=== PATIENT | female | born 1970 | race Caucasian/White ===

== ENCOUNTER 2018-05-08 13:58 | Outpatient (CLI) | payer OTHER | END 2018-05-08 13:59 | disposition home or self-care (01) | LOC: BICMAMMO 13:58 | PROVIDERS: ATTEND Family Medicine | DX: Z12.31 Encounter for screening mammogram for malignant neoplasm of breast (principal); Z80.3 Family history of malignant neoplasm of breast | CPT/HCPCS: 77063; 77067 ==

== ENCOUNTER 2018-07-24 10:30 | Observation (INO) | payer OTHER ==
[2018-07-24 11:23] LABS: #Basophils 0.2 thou/uL (0.0-0.2); #Eosinphils 0.3 thou/uL (0.0-0.7); #Lymphocytes 1.9 thou/uL (1.20-3.40); #Monocytes 0.8 thou/uL (0.11-0.59); #Neutrophils 7.3 thou/uL (1.40-6.50); %Basophils 1.7 % (0.0-1.0); %Eosinophils 2.5 % (0.0-10.0); %Lymphocytes 17.9 % (21.0-51.0); %Monocytes 7.2 % (0.0-10.0); %Neutrophils 70.7 % (42.0-75.0); Hemoglobin 16.9 g/dL (12.0-16.0); Mean Corpuscular Hemoglobin 31.3 pg (27.0-31.0); Mean Corpuscular Volume 92.1 fL (78.0-98.0); Mean Platelet Volume 10.5 fL (7.4-10.4); Platelet Count 205 thou/uL (130-400); RBC Distribution Width 10.7 % (11.5-14.5); White Blood Cell (WBC) Count 10.3 thou/uL (4.8-10.8)
[2018-07-24 11:29] LABS: ALT (SGPT) 22 U/L (8-55); AST (SGOT) 23 U/L (5-34); Albumin 4.8 g/dL (3.5-5.0); Alkaline Phosphatase 76 U/L (40-150); Anion Gap 16 mmol/L (10-20); BUN (Urea Nitrogen) 9 mg/dL (7.0-18.7); Bilirubin, Total 0.5 mg/dL (0.2-1.2); Calc. Creatinine Clearance 0 mL/min (70-130); Calcium 10.1 mg/dL (7.8-10.44); Carbon Dioxide 25 mmol/L (22-29); Chloride 99 mmol/L (98-107); Estimated GFR-MDRD 79; Globulin 3.2 g/dL (2.4-3.5); Glucose 100 mg/dL (70-105); Potassium 3.8 mmol/L (3.5-5.1); Sodium 136 mmol/L (136-145)
--- NOTE | 2018-07-24 11:38 | CT ---
CT BRAIN NONCONTRAST: HISTORY: A 48-year-old female with left lower extremity paresthesia and left lower extremity weakness. FINDINGS: There is no midline shift or any other mass effect. There is no evidence of acute intracranial hemor rhage, large cortical infarct, obstructive hydrocephalus, or extraaxial fluid collection. The calvar ium is intact. IMPRESSION: No acute intracranial findings. jn [] POS: [facility]
[2018-07-24 17:28] VITALS: BMI 22.6
--- NOTE | 2018-07-24 18:51 | PDOC.FPRHP ---
- History of Present Illness Chief Complaint: left leg paresthesias and weakness History of Present Illness: The patient is a 48YOF with a PMH significant for HTN who presented to the ED with a CC of left leg numbness and weakness that has gotten progressively worse over the last 2-3 days. The patient stated that she first noticed some decreased sensation or numbness in her left lateral thigh. Over the next day or so she then began having difficulty dorsiflexing her left foot and felt like her left leg was heavy. She says she has still be able to walk but states that it "feels awkward." The patient denies any associated headache, blurry vision, recent viral illnesses or previous h/o CVA/TIA. The patient also endorses some posterior neck pain that she states has been ongoing for the last several weeks. She describes the pain as a burning/tingling /aching sensation locate all along the back and sides of her neck with occasional radiation into her upper back. She says the pain is fairly constant that it is exacerbated by standing. Has tried icing it but said that did not help. Has not tried any OTC medications for it. Denies any associated upper extremity weakness but has occasional left upper extremity numbness/tingling. ED Course: 243mg ASA - Allergies/Adverse Reactions Allergies Allergy/AdvReac Type Severity Reaction Status Date / Time No Known Allergies Allergy Unverified 07/24/18 17:34 - Home Medications Medication Instructions Recorded Confirmed Type Levothyroxine Sodium 125 mcg PO DAILY 07/24/18 07/24/18 History Lisinopril 1 tab PO DAILY 07/24/18 07/24/18 History - History PMHx: HTN, hypothyroid, and tobacco abuse PSHx: appendectomy at age 16 FHx: Father- CAD s/p CABG & from ALS, diagnosed at age 56-57 and at age 60 Mother- HLD Brother- HTN Social: 32 pack year smoking history, drinks 1 bottle of wine every night, no drug use. Lives at home with and [id number]. Doesn't work. - Review of Systems General: reports: weight/appetite/sleep changes. denies: fever/chills Eyes: denies: eye pain, vision changes ENT: denies: nasal congestion Respiratory: reports: cough. denies: shortness of breath Cardiovascular: reports: palpitation. denies: chest pain Gastrointestinal: reports: diarrhea (loose stools). denies: nausea, vomiting Genitourinary: reports: incontinence (stress incontinence). denies: dysuria Skin: denies: rashes, itching Musculoskeletal: reports: pain. denies: arthritis/arthralgias Neurological: reports: numbness, weakness. denies: syncope, seizure Psychological: reports: other (stress at home 2/2 [id number] living with them ) - Vital signs BP: 124/74 HR: 85 RR: 16 Tmax: 98.1F Pox: 96% on RA Wt: 61.859kg - Physical Exam Constitutional: NAD, awake, alert and oriented, well developed HEENT: normocephalic and atraumatic, PERRLA, EOMI, conjunctiva clear, no scleral icterus, grossly normal vision, grossly normal hearing, MMM, oropharynx clear Neck: FROM, trachea midline, no bruits Heart: RRR, normal S1/S2, pulses present, no edema Lungs: CTAB, no respiratory distress, good air movement, no rales/rhonchi, no wheezing Abdomen: soft, non-tender, bowel sounds present Musculoskeletal: normal structure, other (decreased dorsiflexion in left foot) Neurological: other (All director of recruitment intact with exception of V2 on the left where the patient reported decreased sensation compared to the right impaired dorsiflexion w/ 3/5 in left foot w/ 5/5 strength in left leg B/L UEs decreased sensation to light touch in left thigh compared to right 2+ reflexes in RLE compared to 3+ on the left with no clonus noted intact proprioception bilateral with no cerebellar signs and negative Romberg sign Left-sided drop foot gait noted on exam) Skin: no rash/lesions, good turgor, no jaundice Heme/Lymphatic: no unusual bruising or bleeding, no purpura Psychiatric: normal mood and affect, good judgment and insight, intact recent and remote memory FMR H&P: Results - Labs Result Diagrams: 07/24/18 11:05 07/24/18 11:05 Lab results: WBC 10.3 thou/uL (4.8-10.8) 07/24/18 11:05 Hgb 16.9 g/dL (12.0-16.0) H 07/24/18 11:05 Hct 49.7 % (36.0-47.0) H 07/24/18 11:05 MCV 92.1 fL (78.0-98.0) 07/24/18 11:05 Plt Count 205 thou/uL (130-400) 07/24/18 11:05 Neutrophils % 70.7 % (42.0-75.0) 07/24/18 11:05 Sodium 136 mmol/L (136-145) 07/24/18 11:05 Potassium 3.8 mmol/L (3.5-5.1) 07/24/18 11:05 Chloride 99 mmol/L (98-107) 07/24/18 11:05 Carbon Dioxide 25 mmol/L (22-29) 07/24/18 11:05 BUN 9 mg/dL (7.0-18.7) 07/24/18 11:05 Creatinine 0.78 mg/dL (0.6-1.1) 07/24/18 11:05 Glucose 100 mg/dL (70-105) 07/24/18 11:05 Calcium 10.1 mg/dL (7.8-10.44) 07/24/18 11:05 Total Bilirubin 0.5 mg/dL (0.2-1.2) 07/24/18 11:05 AST 23 U/L (5-34) 07/24/18 11:05 ALT 22 U/L (8-55) 07/24/18 11:05 Alkaline Phosphatase 76 U/L (40-150) 07/24/18 11:05 Serum Total Protein 8.0 g/dL (6.0-8.3) 07/24/18 11:05 Albumin 4.8 g/dL (3.5-5.0) 07/24/18 11:05 FMR H&P: A/P - Problem List (1) Weakness of left foot Current Visit: Yes Status: Acute Code(s): M21.42 - FLAT FOOT [PES PLANUS] ( ACQUIRED), LEFT FOOT (2) Paresthesia Current Visit: Yes Status: Acute Code(s): R20.2 - PARESTHESIA OF SKIN (3) Tobacco abuse Current Visit: Yes Status: Acute Code(s): Z72.0 - TOBACCO USE (4) HTN (hypertension) Current Visit: Yes Status: Acute Code(s): I10 - ESSENTIAL (PRIMARY) HYPERTENSION (5) Hypothyroidism Current Visit: Yes Status: Acute Code(s): E03.9 - HYPOTHYROIDISM, UNSPECIFIED - Plan 48YOF with a PMH significant for HTN who was directly transferred to [facility] from [facility] after presenting there with a CC of left leg numbness and weakness that has gotten progressively worse over the last 2-3 days. Left foot weakness: - Patient had 3/5 strength with dorsiflexion on exam with 3+ reflexes in LLE as well. However, given reports of left thigh and face numbness as well DDx includes psychosomatic disorder vs. MS vs. ALS vs. CVA. Patient is definitely at risk of having a stroke with HTN and smoking history but history and presentation are not super convincing for this. However, given these risk factors, will order an MRI and carotid doppler U/S for in the AM. Will consider consulting neurology based on the results. If negative will most likely inés f/ u with neurology as an outpatient for EMG. - Will order a FLP to risk stratify for need for statin therapy and resume home ASA. Neck pain: - Likely MSK in origin 2/2 tension from stress. Will order tylenol to take PRN overnight and consider initiating a muscle relaxer to take QHS for relief. Will hold NSAIDS for now until sure of CVA or not. HTN: - BP well-controlled on presentation. - Even if patient had a CVA is outside window for permissive HTN since sxs started 2-3 days ago. Will therefore resume home meds. Hypothyroidism: - Aware, will resume home meds. Tobacco use: - Aware, will order a PRN nicotine patch and encourage cessation. EtOH use: - Aware, patient denies having withdrawal sxs when missing a night of drinking. Will order ASE protocol PRN to initiate if patient becomes symptomatic. Spoke with nurse who is aware of this. - FMR H&P: Upper Level - Pertinent history 48 yr old female with PMH of HTN and hypothyroidism who presents for left leg weakness for the last 2-3 days. Seemed to get worse this morning. Associated with left lateral thigh numbness, left leg heaviness. She also reports 2 weeks of horrible neck pain. States it is constant, worse with standing, and ice has not helped. Does not take motrin due to her HTN. No recent viral illnesses, no fevers, no diarrhea. Significant family history includes ALS and CAD in her father. Tobacco abuse with 36 pack year history. Alcohol use of 1 bottle wine each night. - Pertinent findings CT brain: neg EKG: NSR without ST changes Eyes: PERRL, EOMI, no nystagmus. Heart: RRR, no murmurs, rubs, gallops Neuro: normal finger to nose, normal heel to oreilly, Romberg normal, acchiles reflex 2+ on right and 2+ on left, patellar reflex 2+ on right and 3+ on left. CN 2-12 intact except sensation on left side of chin and face slightly numb/ unequal. Proprioception intact. Dorsiflexion in left foot 3/5, but otherwise strength bilaterally is 5/5. - Plan Date/Time: 07/24/181850 I, [Emy Peraza], have evaluated this patient and agree with findings/plan as outlined by pharmacist intern resident. Pertinent changes/additions are listed here. 48 yr old female with focal neurologic signs Left Lower extremity weakness -differential includes CVA, peripheral nerve entrapment, MS, myositis (although not suspected) -obtain MRI to r/o CVA -if MRI non-diagnostic, likely would benefit from outpatient EMG. -Other considerations outpatient may be autoimmune labs but not indicated at this time HTN -symptoms ongoing for >24 hours -resume home meds Hypothyroidism -TSH wnl -cont home meds Alcohol dependence -will place on ASE protocol and monitor for signs of withdrawal -cessation counseling provided Tobacco Abuse -smoking cessation counseling provided -will provide nicotine patch PCP: Darci Diet: REG Code Status: FULL DVT ppx: SCDs GI ppx: none Dispo: Admit to observation and likely discharged in less than 2 midnights. Addendum - Attending - Attending Attestation Date/Time: 07/24/18 4873 I personally evaluated the patient and discussed the management with Dr. Markham I agree with the History, Examination, Assessment and Plan documented above with any addition or exceptions noted below - 48 yo female with h/o HTN, HLD, and hypothyroidism presented c/o left leg numbness and weakness that has gotten progressively worse over the last 2-3 days. The patient stated that she first noticed some decreased sensation or numbness in her left lateral thigh. Over the next day or so she then began having difficulty dorsiflexing her left foot and felt like her left leg was heavy. She says she has still be able to walk but states that it "feels awkward. Also reports some decreased sensation/ numbness over left upper extremity but no weakness. No prior h/o similar symptoms. Also c/o neck pain L>R along posterior neck. PMH/PSH/All/Meds reviewed and agree with resident's documentation. Afebrile BP 124/74 P85 RR16 96%RA Exam repeated nu md and agree with resident's findings. Labs: WBC=10.3 , H/H= 16.9/49.7, Fcd=762, MCV= 92.1, Na= 136, K=3.8, Cl=99, CO2=25, BUN/Cr=9/ 0.78, Ywbb=728, TSH= 1.8961 AST/ALT=23/22. CT brain negative for acute abnormalities. A/P: 1) Left sided paresthesia and foot drop - CT negative so unlikely to be CVA. Will obtain MRI brain in AM. If negative consider MRI of spine (cervical and lumbar). Will also check B12 and folate with recent h/o increased alcohol consumption. 2) HTN- stable; continue home meds. 3) Hypothyroidism- continue home meds.
[2018-07-24] MEDS ORDERED: Ondansetron ODT 4 MG TAB PO PRN (19:05)
[2018-07-24] MEDS ORDERED: Acetaminophen 325 MG TAB PO PRN (19:05)
[2018-07-24] MEDS ORDERED: Nicotine 14 MG PATCH TD SCH (21:00)
[2018-07-24] MEDS ORDERED: Nicotine 14 MG PATCH TD PRN (21:40)
[2018-07-24] MEDS ORDERED: Cyclobenzaprine 10 MG TAB PO SCH ×2 (21:45)
--- NOTE | 2018-07-24 22:51 | ULT ---
CAROTID DOPPLER 07/24/18 PROVIDED CLINICAL HISTORY: Evidence for stroke. FINDINGS: Gandara scale and color doppler sonography with spectral analysis was performed of the extracranial ziegler tid system. No significant plaque is evident. No evidence for a hemodynamically significant internal carotid artery stenosis by peak systolic velocity or ratio criteria. Antegrade flow is seen in the ve rtebral arteries. IMPRESSION: No evidence for a hemodynamically significant internal carotid artery stenosis. POS: [facility]
[2018-07-25] MEDS ORDERED: Lorazepam 2 MG/ML VIAL SLOW IVP PRN (01:10)
[2018-07-25] MEDS ORDERED: Levothyroxine Sodium 125 MCG TAB PO SCH (06:00)
--- NOTE | 2018-07-25 06:27 | PDOC.FM ---
- Subjective Subjective: Patient reports symptoms persistent without much improvement. Notes decreased sensation on left side of body, feeling of heaviness in L leg. Ambulating well. No change in vision. Neck muscle pain improved some with flexeril last night. - Objective MAR Reviewed: Yes Vital Signs & Weight: Vital Signs (12 hours) Temp Pulse Resp BP Pulse Ox 07/25/18 04:00 98.2 F 61 18 123/58 L 96 07/25/18 00:00 98.2 F 66 18 117/56 L 96 Weight Weight 61.859 kg Result Diagrams: 07/25/18 04:50 07/25/18 04:50 Phys Exam - Physical Examination Constitutional: NAD HEENT: moist MMs Respiratory: no wheezing, clear to auscultation bilateral Cardiovascular: RRR, no significant murmur Gastrointestinal: soft, non-tender, no distention, positive bowel sounds Musculoskeletal: no edema, pulses present Neurological: moves all 4 limbs (decreased sensation LUE/LLE, V2 of face. 5/5 muscle strength UE/LE bilaterally. Only deficit is L dorsiflexion 3/5) Psychiatric: normal affect Skin: normal turgor, cap refill <2 seconds Dx/Plan (1) HTN (hypertension) Code(s): I10 - ESSENTIAL (PRIMARY) HYPERTENSION Status: Acute (2) Hypothyroidism Code(s): E03.9 - HYPOTHYROIDISM, UNSPECIFIED Status: Acute (3) Paresthesia Code(s): R20.2 - PARESTHESIA OF SKIN Status: Acute (4) Tobacco abuse Code(s): Z72.0 - TOBACCO USE Status: Acute (5) Weakness of left foot Code(s): M21.42 - FLAT FOOT [PES PLANUS] (ACQUIRED), LEFT FOOT Status: Acute - Plan Plan: 48YOF with a PMH significant for HTN who was directly transferred to [facility] from [facility] after presenting there with a CC of left leg numbness and weakness that has gotten progressively worse over the last 2-3 days. Left foot weakness: - Patient had 3/5 strength with dorsiflexion on exam. However, given reports of left thigh and face numbness as well. DDx includes psychosomatic disorder vs. MS vs. ALS vs. CVA. Stroke risk factors include HTN, tobacco use. - carotid doppler negative - MRI pending. If negative could consider outpatient neurology for EMG. - continue home ASA - pending vitamin labs Neck pain, improving - Likely MSK in origin 2/2 tension from stress. - tylenol, muscle relaxer prn HTN: - BP well-controlled on presentation. - continue home medications Hypothyroidism: - continue home meds. Tobacco use: - PRN nicotine patch and encourage cessation. EtOH use: - Aware, patient denies having withdrawal sxs when missing a night of drinking. ASE protocol if patient becomes symptomatic. Addendum - Attending - Attending Attestation Date/Time: 07/25/18 1210 I personally evaluated the patient and discussed the management with Dr. Martinez. I agree with the History, Examination, Assessment and Plan documented above with any addition or exceptions noted below. Patient notes that her foot weakness is a little improved. We were able to watch her ambulate with pt and there is some weakness with dorsiflexion when walking. MRI is ordered. If negative, can likely go home and continue outpt workup.
[2018-07-25 06:32] LABS: Anion Gap 15 mmol/L (10-20); BUN (Urea Nitrogen) 12 mg/dL (7.0-18.7); Calc. Creatinine Clearance 95 mL/min (70-130); Calcium 9.2 mg/dL (7.8-10.44); Carbon Dioxide 23 mmol/L (22-29); Cardiac Risk 3.5 (Less than 4.5); Chloride 100 mmol/L (98-107); Cholesterol 196 mg/dl (< 200 Desired); Estimated GFR-MDRD 88; Glucose 84 mg/dL (70-105); HDL Cholesterol 56 mg/dL (>60 Neg Risk); LDL Cholesterol, Calculated 112 mg/dL; Potassium 3.6 mmol/L (3.5-5.1); Sodium 134 mmol/L (136-145); Triglycerides 141 mg/dL (Less than 150)
[2018-07-25] MEDS ORDERED: Lisinopril 10 MG TAB PO SCH (09:00)
[2018-07-25] MEDS ORDERED: Aspirin 81 mg Enteric Coated Tablet PO SCH (09:00)
[2018-07-25 10:54] LABS: Folate (Folic Acid) 9.9 ng/mL (7.0-31.4)
--- NOTE | 2018-07-25 12:39 | MRI ---
MRI BRAIN WITH AND WITHOUT CONTRAST: Technique: Multiplanar, multisequence MRI images were obtained of the brain. Indications: Left side weakness. FINDINGS: The ventricles have normal size and position. There is no evidence of restricted diffusion. There is no evidence of infarct, mass, or edema. No white matter abnormality. No abnormal enhancement identifi ed. Cerebral vessels show expected flow voids. IMPRESSION: Unremarkable MRI brain. POS: [facility]
[2018-07-25 13:04] LABS: #Basophils 0.1 thou/uL (0.0-0.2); #Eosinphils 0.3 thou/uL (0.0-0.7); #Lymphocytes 2.2 thou/uL (1.20-3.40); #Monocytes 0.8 thou/uL (0.11-0.59); #Neutrophils 3.4 thou/uL (1.40-6.50); %Lymphocytes 33.3 % (21.0-51.0); %Monocytes 11.1 % (0.0-10.0); %Neutrophils 50.6 % (42.0-75.0); Hemoglobin 15.3 g/dL (12.0-16.0); Mean Corpuscular HGB CONC 34.6 g/dL (32.0-36.0); Mean Corpuscular Hemoglobin 33.2 pg (27.0-31.0); Mean Platelet Volume 9.7 fL (7.4-10.4); Platelet Count 192 thou/uL (130-400); RBC Distribution Width 11.9 % (11.5-14.5); Red Blood Cell (RBC) Count 4.62 mill/uL (4.20-5.40); White Blood Cell (WBC) Count 6.7 thou/uL (4.8-10.8)
[2018-07-25 16:04] VITALS: TEMP 97.9
[2018-07-25 17:02] VITALS: BP 95/54
== END 2018-07-25 17:00 | disposition home or self-care (01) ==
LOC: SCSER 10:30 → SCSEROBS 13:07 → 2SE 17:15
PROVIDERS: ADMIT Student in an Organized Health Care Education/Training Program; ATTEND Student in an Organized Health Care Education/Training Program
DX: R53.1 Weakness (principal); R20.2 Paresthesia of skin; M54.2 Cervicalgia; I10 Essential (primary) hypertension; E03.9 Hypothyroidism, unspecified; F17.210 Nicotine dependence, cigarettes, uncomplicated; Z79.899 Other long term (current) drug therapy
CPT/HCPCS: 36415; 70450; 70553; 80048; 80053; 80061; 82607; 82746; 84443; 84484; 85025; 93005; 93880; 96374; G0378; J2060

== ENCOUNTER 2019-03-16 07:51 | Emergency (ER) | payer OTHER ==
--- NOTE | 2019-03-16 08:26 | RAD ---
Exam: Right elbow 4 views: HISTORY: Injury from a fall FINDINGS: Evidence for a large distended joint effusion. Nondisplaced linear fracture vertically oriented throu gh the radial head. No dislocation or malalignment. IMPRESSION: Linear nondisplaced vertical fracture through the radial head with very large distended joint effusio n.
== END 2019-03-16 08:52 | disposition home or self-care (01) ==
LOC: SCSER 07:51
DX: S52.121A Displaced fracture of head of right radius, initial encounter for closed fracture (principal); S80.211A Abrasion, right knee, initial encounter; M25.421 Effusion, right elbow; E03.9 Hypothyroidism, unspecified; I10 Essential (primary) hypertension; F41.9 Anxiety disorder, unspecified; F31.9 Bipolar disorder, unspecified; F17.210 Nicotine dependence, cigarettes, uncomplicated; Z79.899 Other long term (current) drug therapy; W17.89XA Other fall from one level to another, initial encounter
CPT/HCPCS: 24650

== ENCOUNTER 2019-05-08 21:02 | Emergency (ER) | payer OTHER ==
[2019-05-08] MEDS ORDERED: Ibuprofen 600 MG TAB ONE (21:33)
--- NOTE | 2019-05-09 00:07 | RAD ---
THREE VIEWS LEFT HAND: 05/08/19 HISTORY: Fall on outstretched hand while trying to prevent dog from fighting. Pain in left fourth and fifth di gits with swelling. FINDINGS: There is a mildly comminuted fracture involving the proximal phalanx of the left ring finger with mil d separation of the fracture fragments and slight apex medial angulation of the fracture fragments. T here is subtle lucency extending into the metacarpophalangeal joint which may represent intra-articul ar extension. There is also a fracture seen involving the base of the proximal phalanx of the left sm all finger. No additional fracture is seen. There is no dislocation. No other osseous abnormality. IMPRESSION: 1. Mildly comminuted fracture with probable intra-articular extension involving the base and pro ximal aspect of the proximal phalanx left ring finger. 2. Fracture of the proximal phalanx left small finger. POS: OFF
== END 2019-05-08 22:10 | disposition home or self-care (01) ==
LOC: SCSER 21:02
DX: S62.617A Displaced fracture of proximal phalanx of left little finger, initial encounter for closed fracture (principal); S62.615A Displaced fracture of proximal phalanx of left ring finger, initial encounter for closed fracture; E03.9 Hypothyroidism, unspecified; I10 Essential (primary) hypertension; F41.9 Anxiety disorder, unspecified; F31.9 Bipolar disorder, unspecified; F17.210 Nicotine dependence, cigarettes, uncomplicated; Z79.899 Other long term (current) drug therapy; W18.30XA Fall on same level, unspecified, initial encounter